=== PATIENT | female | born 1985 | race Two or more races ===

== ENCOUNTER 2025-01-31 14:52 | Emergency (ER) | payer MEDICAID, SELFPAY ==
[2025-01-31 14:59] VITALS: BP 137/87; PULSE 67; RESP 20; TEMP 36.8; O2SAT 95
--- NOTE | 2025-01-31 15:09 | PD.EDADULT ---
ED General RME/HPI General Chief complaint: General Adult/Misc Complain Stated complaint: PT STATES SHE HAS HYPOCALCEMIA Time Seen by Provider: 01/31/25 15:07 Source: patient Arrival date/time: 01/31/25 14:52 Limitations: no limitations RME / HPI RME / HPI narrative: 39-year-old female with a known history of hypocalcemia presents stating that she has numbness and tingling to the upper and lower extremities as well as to her body. Patient describes lethargy and pain. This began 3 days ago. Onset (ago): day(s) (3) Location: upper extremity and lower extremity Severity: moderate Severity scale (1-10): 5 Quality: other (Tingling) Consistency: constant Relieving factors: medication (Calcium) Exacerbating factors: movement Treatments prior to arrival: none Related Data Home Medications ?Medication ?Instructions ?Recorded ?Confirmed calcitriol 0.5 mcg capsule 1 mcg PO BID 07/21/18 07/25/22 calcium carbonate (Calcium 600) 600 mg PO TID 07/21/18 07/25/22 levothyroxine 137 mcg tablet 137 mcg PO QDAY 07/25/22 07/25/22 Previous Rx's ?Medication ?Instructions ?Recorded ibuprofen 800 mg tablet 800 mg PO BID PRN pain #30 tabs 07/21/18 hydroxyzine HCl 25 mg tablet 25 mg PO TID PRN anxiety #30 tabs 07/25/22 Allergies Allergy/AdvReac Type Severity Reaction Status Date / Time Latex, Natural Rubber Allergy Rash Verified 01/31/25 14:56 Review of Systems Constitutional Constitutional: Reports system reviewed and no additional complaints, except as documented Eyes Eyes: Reports system reviewed and no additional complaints, except as documented, Denies dry eyes, Denies exophthalmos and Reports floaters Cardiovascular Cardiovascular: Denies chest pain with activity and Denies claudication ED Exam General Limitations: Present no limitations General appearance: Present alert and in no apparent distress Head Head exam: Present atraumatic Eye Eye exam: Present normal appearance and EOMI ENT ENT exam: Present normal exam, normal oropharynx and mucous membranes moist Neck Neck exam: Present normal inspection, full ROM and trachea midline Chest Chest inspection: Present normal inspection Respiratory Respiratory exam: Present normal lung sounds bilaterally Cardiovascular Cardiovascular exam: Present regular rate, normal rhythm and normal heart sounds Extremities Exam Extremities exam: Present normal inspection and full ROM Back Exam Back exam: Present normal inspection and full ROM Neurological Exam Neurological exam: Present alert and oriented X3 Psychiatric Psychiatric exam: Present normal affect and normal mood Skin Skin exam: Present warm, dry, intact and normal color Course Course Course Narrative: Patient will have a calcium level which is included in the consult and some panel, CBC, and if her calcium is low she will receive calcium. Quality Measures none Orders Category Date Time Status CBC Stat Lab 01/31/25 15:19 Completed Comprehensive Metabolic Panel Stat Lab 01/31/25 15:19 Completed Free T4 (Free Thyroxine) Stat Lab 01/31/25 15:19 Completed Lipase Stat Lab 01/31/25 15:19 Completed Magnesium Stat Lab 01/31/25 15:19 Completed PTH [Parathyroid Hormone Intact] Stat Lab 01/31/25 15:19 Completed Thyroid Stimulating Hormone Stat Lab 01/31/25 15:19 Completed Urinalysis Stat Lab 01/31/25 15:58 Completed Vitamin B12 Stat Lab 01/31/25 15:19 Completed Calcium Gluc/Ns 1000MG Ivpb [Calcium Gluc/Ns 1000mg Med 01/31/25 18:59 Discontinued Ivpb] 1,000 mg in 50 ml IV X1 Calcium Gluconate 10% Inj Med 01/31/25 19:05 Discontinued 1 gm IV X1 ONE KCL 10% Liq UDC 15 ML Med 01/31/25 19:40 Discontinued 40 meq PO X1 ONE Magnesium Sulfate 1 gm Ivpb [Magnesium Sulfate Ivpb] Med 01/31/25 19:41 Discontinued 1 gm in 100 ml IV X1 Vital Signs Vital signs: Vital Signs Temperature 98.3 F 01/31/25 14:59 Pulse Rate 67 01/31/25 14:59 Respiratory Rate 20 01/31/25 14:59 Blood Pressure 137/87 H 01/31/25 14:59 Pulse Oximetry (%) 95 01/31/25 14:59 Oxygen Delivery Method Room Air 01/31/25 14:59 Pulse ox room air 95% Discharge Plan Plan Patient Disposition: HOME (Self Care) Discharge Disposition comment: Patient discharged in no apparent distress Patient condition on transfer: Stable Prescriptions/Referrals Prescriptions/Med Rec: No Action calcium carbonate [Calcium 600] 600 mg calcium (1,500 mg) Tablet 600 mg PO TID calcitriol 0.5 mcg Capsule 1 mcg PO BID ibuprofen 800 mg tablet 800 mg PO BID PRN (Reason: pain) Qty: 30 0RF levothyroxine 137 mcg tablet 137 mcg PO QDAY Patient Comments: TAKE 1 TABLET BY MOUTH EVERY DAY hydroxyzine HCl 25 mg tablet 25 mg PO TID PRN (Reason: anxiety) Qty: 30 0RF Referrals: Clive ([place]),PRESLEY Wiseman [Primary Care Provider] - In 1 week Problem List Clinical Impression: Hypocalcemia, [place] spasm Patient/Caregiver Discharge Instructions Education Materials: ED Hypocalcemia (Adult) Print Language: Azerbaijani Stand Alone Forms: [employer] Award Info., Patient Portal Info Letter PA/[employer] EQU[employer]MENT MAINTENANCE SUPERVISOR Supervising Physician PA/[employer] EQUIPMENT MAINTENANCE SUPERVISOR Supervising Physician: Lili GRIGGS Medication Administration(s) Medication Administration History Discontinued Medications Calcium Gluconate (Calcium Gluconate 10% Inj 1 Gm/10 Ml Vial) 1 gm IV X1 ONE Stop: 01/31/25 19:06 Last Admin: 01/31/25 19:26 Dose: 1 gm Documented By: EF Calcium Gluconate/Sodium Chloride (Calcium Gluc/Ns 1000mg Ivpb) 1,000 mg in 50 mls @ 50 mls/hr IV X1 ONE Stop: 01/31/25 19:58 Last Infusion: 01/31/25 20:30 Dose: Infused Documented By: Admin: 01/31/25 19:26 Dose: 50 mls/hr Documented By: EF Magnesium Sulfate/Dextrose (Magnesium Sulfate Ivpb) 1 gm in 100 mls @ 100 mls/hr IV X1 ONE Stop: 01/31/25 20:40 Last Infusion: 01/31/25 21:40 Dose: Infused Documented By: Admin: 01/31/25 20:40 Dose: 100 mls/hr Documented By: EF Potassium Chloride (Potassium Chloride 10% 20 Meq/15 Ml Udc) 40 meq PO X1 ONE Stop: 01/31/25 19:41 Last Admin: 01/31/25 20:00 Dose: 40 meq Documented By: EF
[2025-01-31 15:33] LABS: Basophils % (Auto) 0 % (0-2.5); Eosinophils # (Auto) 0.3 Thou/mm3 (0.0-0.5); Eosinophils % (Auto) 3 % (0-10); Hematocrit 34.7 % (36.0-46.0); Hemoglobin 12.5 g/dL (12.0-16.0); Immature Granulocytes % (Auto) 0 % (0-0); Immature Granulocytes Auto 0.03 Thou/mm3 (0.00-0.00); Lymphocytes # (Auto) 2.8 Thou/mm3 (1.0-4.8); Lymphocytes % (Auto) 29 % (10-50); Mean Corpuscular Hemoglobin 28.7 pg (25.0-35.0); Mean Corpuscular Volume 80 fL (80-100); Monocytes # (Auto) 0.6 Thou/mm3 (0.0-0.8); Monocytes % (Auto) 6 % (0-12); Neutrophils # (Auto) 6.1 Thou/mm3 (1.8-7.7); Neutrophils % (Auto) 62 % (37-80); Nucleated Red Blood Cell % 0 /100 WBC (0); Platelet Count 265 Thou/mm3 (140-440); RDW Standard Deviation 40.9 fL (36.4-46.3); Red Blood Count 4.36 Miln/mm3 (4.00-5.20); White Blood Count 9.9 Thou/mm3 (3.6-11.0)
[2025-01-31 15:46] LABS: Alanine Aminotransferase 23 U/L (10-49); Albumin, Serum 4.6 gm/dL (3.5-5.0); Albumin/Globulin Ratio 1.8 (1.2-2.2); Alkaline Phosphatase 74 U/L (46-116); Anion Gap 10 (7-16); BUN/Creatinine Ratio 10 Ratio (12-20); Bilirubin,Total 0.3 mg/dL (0.3-1.2); Blood Urea Nitrogen 9 mg/dL (9-23); Chloride 100 mMol/L (98-107); Creatinine (Component) 0.9 mg/dL (0.6-1.3); Estimated Creatinine Clearance 84.7 mL/min (>60); Globulin 2.6 gm/dL (2.3-3.5); Glucose 95 mg/dL (74-106); Lipase 29 U/L (12-53); Osmolality,Calculated 272 (275-295); Potassium 3.7 mMol/L (3.4-5.1); Sodium 137 mMol/L (136-145); Total Protein 7.2 gm/dL (5.7-8.2); eGFR > 60 See Note
[2025-01-31 16:09] LABS: Collection Type, Urine Clean Catch
--- NOTE | 2025-01-31 16:20 | PD.EDADULT ---
ED General RME/HPI General Chief complaint: General Adult/Misc Complain Stated complaint: PT STATES SHE HAS HYPOCALCEMIA Time Seen by Provider: 01/31/25 15:07 Source: patient Arrival date/time: 01/31/25 14:52 RME / HPI RME / HPI narrative: 39-year-old female with a known history of hypocalcemia presents stating that she has numbness and tingling to the upper and lower extremities as well as to her body. Patient describes lethargy and pain. This began [address] CASIANO MAIN ED EVALUATION: 39 year old female with past medical history significant for hypocalcemia presents to the Emergency Department with complaint of numbness and tingling to her upper and lower extremities, bilaterally. Associated generalized weakness. Onset of symptoms 3 days. Location: upper extremity and lower extremity Severity scale (1-10): 5 Quality: other (Tingling) Relieving factors: medication (Calcium) Exacerbating factors: movement Treatments prior to arrival: none Related Data Home Medications ?Medication ?Instructions ?Recorded ?Confirmed calcitriol 0.5 mcg capsule 1 mcg PO BID 07/21/18 07/25/22 calcium carbonate (Calcium 600) 600 mg PO TID 07/21/18 07/25/22 levothyroxine 137 mcg tablet 137 mcg PO QDAY 07/25/22 07/25/22 Previous Rx's ?Medication ?Instructions ?Recorded ibuprofen 800 mg tablet 800 mg PO BID PRN pain #30 tabs 07/21/18 hydroxyzine HCl 25 mg tablet 25 mg PO TID PRN anxiety #30 tabs 07/25/22 Allergies Allergy/AdvReac Type Severity Reaction Status Date / Time Latex, Natural Rubber Allergy Rash Verified 01/31/25 14:56 Review of Systems Review of Systems Systems Reviewed: All systems reviewed, normal except as documented Narrative Review of Systems: Constitutional: DENIES: fevers; Eyes: DENIES: loss of vision; Head/Ear/Nose: DENIES: loss of hearing. Throat: DENIES: dysphagia. Cardiovascular: DENIES: chest pain, dyspnea, or syncope. Respiratory: DENIES: shortness of breath; Gastrointestinal: DENIES: rectal bleeding or melena. Genitourinary: DENIES: dysuria (painful or difficult urination); Musculoskeletal: DENIES: arthralgia (pain in a joint); Skin: DENIES: rash; Neurological: POSITIVES: numbness and tingling to her upper and lower extremities, generalized weakness Psychiatric: DENIES: recent major life stressor, emotional problem, illicit drug use or abuse; Endocrinology: DENIES: weight change,; Hematologic/Lymphatic: DENIES: abnormal bruising. Allergic/Immunologic: DENIES: urticaria (hives). Past Medical History Past Medical History GASTROINTESTINAL: Positive Gastrointestinal Disorders and Gastroesophageal Reflux Disease REPRODUCTIVE: Positive Breast Cancer (Right lumpectomy) and Previous Pregnancies ENDOCRINE: Positive Endocrine Disorders, Hypothyroidism and Parathyroid Disease OTHER HISTORY: Positive Radiation Therapy, Cancer (thyroid) and Breast Cancer (Right lumpectomy) Surgical History SURGICAL: Positive Endocrine Surgery, Thyroidectomy, Throat Surgery and Mastectomy (Right) Social History SMOKING STATUS: Never smoker SUBSTANCE USE: does not use ALCOHOL: Never Course Quality Measures none Orders Category Date Time Status CBC Stat Lab 01/31/25 15:19 Completed Comprehensive Metabolic Panel Stat Lab 01/31/25 15:19 Results Free T4 (Free Thyroxine) Stat Lab 01/31/25 15:19 Results Lipase Stat Lab 01/31/25 15:19 Results Magnesium Stat Lab 01/31/25 15:19 Results PTH [Parathyroid Hormone Intact] Stat Lab 01/31/25 15:19 Completed Thyroid Stimulating Hormone Stat Lab 01/31/25 15:19 Results Urinalysis Stat Lab 01/31/25 15:58 Completed Vital Signs Vital signs: Vital Signs Temperature 98.3 F 01/31/25 14:59 Pulse Rate 67 01/31/25 14:59 Respiratory Rate 20 01/31/25 14:59 Blood Pressure 137/87 H 01/31/25 14:59 Pulse Oximetry (%) 95 01/31/25 14:59 Oxygen Delivery Method Room Air 01/31/25 14:59 Discharge Plan Prescriptions/Referrals Prescriptions/Med Rec: No Action calcium carbonate [Calcium 600] 600 mg calcium (1,500 mg) Tablet 600 mg PO TID calcitriol 0.5 mcg Capsule 1 mcg PO BID ibuprofen 800 mg tablet 800 mg PO BID PRN (Reason: pain) Qty: 30 0RF levothyroxine 137 mcg tablet 137 mcg PO QDAY Patient Comments: TAKE 1 TABLET BY MOUTH EVERY DAY hydroxyzine HCl 25 mg tablet 25 mg PO TID PRN (Reason: anxiety) Qty: 30 0RF Referrals: Clive ([facility]PRESLEY Wiseman [Primary Care Provider] - In 1 week Patient/Caregiver Discharge Instructions Print Language: Cambodian MDM Narrative MDM hospital course: I, Peyton Meade, am scribing for and in the presence of Dr. Casiano. Clinical Information Provided by patient Medical Records Reviewed [facility] Meds/Rx Considered, not Ordered None Labs/Rad/Tests considered, not Ordered None Chronic Illness/Social Conditions Add or document further as needed: hypocalcemia Lab Interpretation Labs: see narrative above Imaging Imaging interpretation: none Diagnosis Differential diagnosis: hypocalcemia, hypoparathyroidism, dehydration
[2025-01-31 16:25] VITALS: BP 123/91; PULSE 66; RESP 15; O2SAT 99
[2025-01-31 16:31] LABS: Bacteria,Urine Rare; Bilirubin,Urine Negative (Negative); Blood,Urine Negative (Negative); Clarity,Urine Clear (Clear/Hazy); Color,Urine Colorless (Lt Yel-Yel); Glucose, Urine Negative (Negative); Ketones,Urine Negative (Negative); Leukocyte Esterase,Urine Negative (Negative); Nitrite,Urine Negative (Negative); Protein,Urine Negative (Neg - Trace); RBC,Urine 1 /hpf (0-3); Specific Gravity,Urine 1.011 (1.001-1.035); Squamous Epithelial Cell,Urine 3 /hpf (0-5); Urobilinogen,Urine Negative mg/dL (0.0-1.0); WBC,Urine 1 /hpf (0-5)
[2025-01-31 16:41] LABS: Parathyroid Hormone Intact 16.3 pg/ml (18.5-88.0)
[2025-01-31 17:34] LABS: Free T4 (Free Thyroxine) 0.76 ng/dL (0.89-1.76); Magnesium 1.9 mg/dL (1.6-2.6); Thyroid Stimulating Hormone 32.47 uIU/mL (0.55-4.78)
[2025-01-31 17:56] VITALS: BP 131/75; PULSE 59; RESP 17; TEMP 36.7; O2SAT 100
--- NOTE | 2025-01-31 18:08 | PD.EDADDENDU ---
Emergency Room Addendum Addendum Narrative: 1800: Care assumed from Dr. Pearson (emergency physician). Past medical, surgical, social and family history reviewed. Vitals and home medications reviewed. Results and treatment plan discussed. They will assume the care of the patient at this time and will follow the patient. The following addendum documentation note is intended to reflect any pending information, findings, or radiology results not included in the patient?s initial chart by the previous shift scribe. Patient transferred to main ED for higher level of care. 185: Patient admits she has not been taking her thyroid medication due to no insurance coverage, but insists she has a prescription awaiting pick-up at the pharmacy now. Patient will be treated with IV Ca+. 2017: Patient feels much better. Her hand cramping is relieved. 2040: I have spoken with the patient and discussed today?s findings, in addition to providing specific details for the plan of care. Questions are answered and there is an agreement with the plan. Re-assessment at the time of disposition demonstrates that the patient is in no acute distress. The patient has remained stable throughout the entire ED visit and is without objective evidence for acute process requiring urgent intervention or hospitalization. The patient is stable for discharge; counseling is provided and documented as above, discussing symptomatic treatment and specific conditions for return.
[2025-01-31] MEDS: CALCIUM GLUCONATE 10% INJ 1 GM/10 ML VIAL IV (19:26)
[2025-01-31] MEDS: CALCIUM GLUC/NS 1000MG IVPB 1,000 MG/50 ML BAG 50 MG IV (19:26)
[2025-01-31] MEDS: POTASSIUM CHLORIDE 10% 20 MEQ/15 ML UDC 40 MEQ PO (20:00)
[2025-01-31 20:30] LABS: Vitamin B12 635 pg/mL (211-911)
[2025-01-31] MEDS: Magnesium Sulfate 1 gm Ivpb 1 GM/100 ML BAG IV (20:40)
[2025-01-31 21:42] VITALS: BP 123/86; PULSE 78; RESP 16; O2SAT 100
== END 2025-01-31 21:43 | disposition home or self-care (01) ==
PROVIDERS: Emergency Medicine; Physician Assistant; Emergency Provider Emergency Medicine; PCP Physician Assistant
DX: E83.51 Hypocalcemia (principal); R29.0 Tetany
CPT/HCPCS: 36415; 80053; 81001; 82310; 82607; 83690; 83735; 83970; 84439; 84443; 85025; 96365; 96367; 99284; J0612; J0613; J3475; A9270